=== PATIENT | male | born 1965 | race Caucasian/White ===

== ENCOUNTER 2016-09-01 10:25 | Day surgery (SDC) | payer OTHER ==
--- NOTE | 2016-09-01 09:39 | HP ---
DATE OF CLINIC: 08/30/2016 DEANDRE IBARRA : 1965 PLANNED PROCEDURE: Left Hip Hardware Removal DATE OF SURGERY: September 01, 2016 SURGEON: Denys Carpio M.D. HISTORY OF PRESENT ILLNESS Deandre Ibarra is a 51 year old male. * Medication list reviewed with patient allergy list reviewed with patient. * Feeling fine. The patient is a 51-year-old male who is now 8 months status post a left hip femoral neck fracture treated with an open reduction fixation with DHS and a derotational screw. The patient continues to have some nondescript pain by his left hip. He feels that his derotational screw from his left hip is continuing to bother him when he lays on this side and would like to have it removed. He has more pain on this side when he rolls on it and would like to discuss whether this could be secondary to the screw. He states that he occasionally has some spasm like sensation in his left calf. He is not sure what the cause of this is and would like to know if this is something that could be improved with surgery. The patient has chronic weakness on the left side from his previous stroke. He is here today with his family and would like to talk about his options. We discussed both non-operative and surgical options and he has elected to proceed with surgery. He presents today preoperatively for left hip hardware removal. The patient's PMH is significant for a history of a stroke. CURRENT MEDICATION * Acetaminophen 325 MG Tablet as directed 0 days, 0 refills * Aspirin 325 MG Tablet as directed 0 days, 0 refills * Atorvastatin Calcium 40 MG Tablet 1 once a day 0 days, 0 refills * BuPROPion HCl ER (SR) 150 MG Tablet, extended-release 12 hour TB12, 1 twice a day, 30 days, 4 refills * Daily Multivitamin Capsule 1 once a day 0 days, 0 refills * DiazePAM 5 MG Tablet 1/2 po qhs. ok to fill 08/16/16., 28 days, 0 refills * Docusate Sodium 100 MG Tablet 1 twice a day 0 days, 0 refills * Gemfibrozil 600 MG Tablet 1 twice a day, 90 days, 1 refills * Metoprolol Tartrate 25 MG Tablet 1 twice a day, 30 days, 4 refills * Naprosyn 500 MG Tablet 1 twice a day, 30 days, 4 refills * Remeron 30 MG Tablet 1 every bedtime. dose increase, 30 days, 6 refills * Sertraline HCl 100 MG Tablet 1 po qhs, 30 days, 4 refills * TraZODone HCl 50 MG Tablet 1 every bedtime 0 days, 0 refills * Vistaril 25 MG Capsule 1 po up to three times daily as needed if panic symptoms., 10 days, 1 refills PAST MEDICAL/SURGICAL HISTORY Reported: Recent change in medical history and no Surgery/Hospitalizations reported. Medical: Stroke. Surgical / Procedural: Prior surgery back surgery Left hip ORIF performed by Dr. Denys Carpio at the [facility] on 01/07/2016. SOCIAL HISTORY Social history unchanged. Behavioral: Caffeine use , 1ppd, current smoker, and smoking status: Current everyday smoker. Alcohol: No consumption of alcohol. Drug Use: Drug use pt uses marijuana for medical purposes, does have medical card. -cristopher salmeron. Home Environment: Homebound with assistance by family member or friend living in house. Work: Occupation disabled. Lives with sister. B-N-L is assigned caregiver. ALLERGIES * Dilaudid Reaction: makes him feel loopy REVIEW OF SYSTEMS Systemic: No fever and no recent weight change. Cardiovascular: No chest pain or discomfort and no palpitations. Pulmonary: No cough and no wheezing. Gastrointestinal: No nausea, no vomiting, no abdominal pain, and no diarrhea. Hematologic: No easy bleeding (no blood clots). Neurological: Motor disturbances (due to stroke) and sensory disturbances (due to stroke). Skin: No skin lesions and no rash. PHYSICAL FINDINGS * Vitals taken 08/30/2016 10:32 am BP-Sitting R 137/98 mmHg 100 - 120/60 - 80 BP Cuff Size Regular Pulse Rate-Sitting 66 bpm 50 - 100 Pulse Rhythm Regular Temp-Oral 97.1 F 96 - 101 Height 67 in 64 - 74 Eyes: General/bilateral: Extraocular Movements: * Normal. Lungs: * Clear to auscultation. * No wheezing was heard. * No rales/crackles were heard. Cardiovascular: Heart Rate And Rhythm: * Heart rate was normal. * Heart rhythm regular. Abdomen: Palpation: * Abdominal non-tender. Neurological: Motor: * Dominant Hand = Right Hand. The patient's left hip laterally based incision is well healed with no signs of infection. He continues to have tenderness just inferior to the greater trochanter where the derotational screw was backing out. The patient's range of motion of the hip appears to be normal. He has a negative log roll test. Passive range of motion of the left hip is from 0 to 95 degrees, internal rotation is 10 degrees, external rotation is 15 degrees. He continues to have gross sensation to light touch in the distribution of DP and SP nerves and capillary refill is less than 2 seconds. I had the patient's left knee taken through a range of motion. I do not appreciate any signs of joint line tenderness. No pain on the medial or lateral femoral condyle. His range of motion on the left knee is from 0 to 125 degrees. He has 4/5 strength of his quad. When I squeeze his calf I could not elicit any pain. TESTS * Test: CBC NO DIFF Report Date: 08/30/2016 WBC 6.5 10*3/mL MCV 89.2 fL RBC 4.37 10*6/uL Low MCH 30.4 pg MCHC 34.1 g/dL RDW 13.5 % PLATELET COUNT 319 10*3/mL HCT 39.0 % HGB 13.3 g/L Low * Test: BASIC METABOLIC PROFILE Report Date: 08/30/2016 BUN 17 mg/dL BUN/CREAT RATIO 17 CALCIUM 9.5 mg/dL GLUCOSE 76 mg/dL CREATININE 1.0 mg/dL SODIUM 134 meq/L Low POTASSIUM 4.6 meq/L CHLORIDE 100 meq/L CARBON DIOXIDE 27 meq/L ANION GAP 12 meq/L GFR 78 IMAGING 2.1.2017--CXR: No acute cardiopulmonary problems are appreciated. X-rays performed on August 09, 2016 show AP and lateral of the right knee. The patient has vascular clips on medial aspect of the left knee with mild bilateral knee osteoarthritis. The vascular clips on the left side are most likely from a saphenous vein harvest. On the flexion view I do not appreciate any narrowing. On the x-rays from August 09, 2016 I continue to see good signs of healing of the femoral neck fracture. No signs of motion at the DHS however the derotational screw continues to be proud. I think that this is possibly causing the patient some discomfort and without a CT scan I cannot say for sure if the femoral neck fracture is healed, however overall I think the patient's pain may be from this proud screw head. ASSESSMENT Left hip femoral neck fracture. Status post open reduction internal fixation with DHS and derotational screw, 7 months postoperative. History of cerebellar stroke with ataxia. PLAN * OTHER Malone 5-325 MG TABS, as directed: one tab by mouth every 6 hours as needed for pain, 7 days, 0 refills Keflex 500 MG CAPS, as directed: one tab by mouth every 8 hours until completed after surgery, 2 days, 0 refills Left hip hardware removal. THERAPY * Patient fall risk screen positive. * Patient eligible for fall risk assessment. * Patient received fall risk assessment. SURGICAL CONSENT We have discussed surgical options including left hip hardware removal and non-operative management. The patient and I spoke about the goals of the surgery. We spoke about the benefits of removing the screw. I did emphasize to him that I did not think this would help his left knee pain. I do think it will help his left sided discomfort though when he lays on that side. We spoke about the risks of infection, DVT, anesthesia risks and other problems. The patient then signed the consent form. The patient was counseled in detail regarding the diagnosis, treatment options available, prognosis of each treatment option and the potential risks and complications. The risks of surgery include, but are not limited to, anesthetic , neurovascular complications, pulmonary embolism, deep vein thrombosis, wound dehiscence, failure of any or all of the discussed procedures, infection of the joint or surrounding soft tissue, need for revision surgery, chronic pain, limitations in activities of daily living, inability to return to work, and loss of normal range of motion or functional use of the extremity. There is the possibility of failure over time that may require additional operative or non-operative treatment. The patient acknowledged that there are a number of perioperative risks not mentioned here and would still like to proceed. The patient is aware of and understands these risks, and wishes to proceed with the proposed surgical procedure and other procedures as indicated at the time of surgery. The preoperative instructions were reviewed with the patient and all questions were answered. CARE TEAM Reynaldo aHthaway Jr., MD Neurological Surgery Martina Hernandez PA-C [facility] Kang Cavanaugh MD Cardiovascular Disease BLP/sg
[2016-09-01] MEDS ORDERED: CEFAZOLIN SODIUM 2 GRAM PREMIX 100 ML IV PRN (10:30)
[2016-09-01] MEDS ORDERED: LACTATED RINGERS 1,000 ML ONE (10:31)
[2016-09-01] MEDS ORDERED: CEFAZOLIN SODIUM 2 GRAM PREMIX 100 ML IV ONE (10:32)
[2016-09-01] MEDS ORDERED: IV START KIT ONE (10:32)
[2016-09-01] MEDS ORDERED: LIDOCAINE 2% (PRES FREE) 5 ML VIAL ONE (12:27)
[2016-09-01] MEDS ORDERED: PROPOFOL 20 ML IV ONE (12:27)
[2016-09-01] MEDS ORDERED: MIDAZOLAM HCL 1 MG/ML 2ML VIAL ONE (12:27)
[2016-09-01] MEDS ORDERED: METOCLOPRAMIDE HCL 5 MG/ML 2ML VIAL ONE (12:27)
[2016-09-01] MEDS ORDERED: FENTANYL 5 ML ONE (12:27)
[2016-09-01] MEDS ORDERED: DEXAMETHASONE SOD PHOS 4 MG/1 ML VIAL ONE (12:27)
[2016-09-01] MEDS ORDERED: ROCURONIUM BROMIDE 10 MG/ML DOSE IV ONE (12:28)
[2016-09-01] MEDS ORDERED: ATROPINE SULFATE 0.4 MG/1 ML VIAL IV PRN (14:59)
[2016-09-01] MEDS ORDERED: NALOXONE HCL 0.4 MG/ML VIAL IV PRN (14:59)
[2016-09-01] MEDS ORDERED: ONDANSETRON 4 MG/2ML 2 ML VIAL IV PRN ×2 (14:59→16:07)
[2016-09-01] MEDS ORDERED: HYDROMORPHONE HCL 1 MG/ML SYRINGE IV PRN (14:59)
[2016-09-01] MEDS ORDERED: FENTANYL 100 MCG/2 ML VIAL IV PRN (14:59)
[2016-09-01] MEDS ORDERED: PROMETHAZINE HCL 25 MG/ML VIAL IM PRN (14:59)
[2016-09-01] MEDS ORDERED: LACTATED RINGERS 1,000 ML IV SCH ×2 (15:00→16:07)
[2016-09-01] MEDS ORDERED: NEOSTIGMINE METHYLSULFATE 1 MG/ML DOSE ONE (15:03)
[2016-09-01] MEDS ORDERED: ONDANSETRON 4 MG/2ML 2 ML VIAL ONE (15:03)
[2016-09-01] MEDS ORDERED: GLYCOPYRROLATE 0.2 MG/ML 1ML VIAL ONE (15:03)
[2016-09-01] MEDS ORDERED: BUPIVACAINE 0.25% (PRES FREE) 30 ML VIAL ONE (15:28)
--- NOTE | 2016-09-01 15:31 | PCMBPN ---
Brief Post Op Note: Date of Procedure: 09/01/16 Preoperative Diagnosis: 1. left hip painful hardware Postoperative Diagnosis: 1. [Same] Procedure: left hip removal of hardware Surgeon: Denys Carpio MD Assist:Lionel TELLEZ Anesthesia: GETA, 10mL 0.25% MARCAINE WITHOUT EPI Findings: as expected, derotational screw removed without incident Condition: extubated, stable vitals, transferred to PACU Complications: None IV Fluids: 1000 mLs of LR Urine Output: 0 mLs Estimated Blood Loss: 0 mLs Tourniquet Time: [N/A] Specimens: [N/A] Implants: None Drains: [N/A] PLAN: WBAT on the LLE. Only and Keflex for jhonatan-op prescriptions.
[2016-09-01] MEDS ORDERED: FENTANYL 100 MCG/2 ML VIAL ONE (15:55)
[2016-09-01] MEDS ORDERED: HYDROCODONE/ACETAMINOPHEN 5/325MG TABLET PO PRN (16:07)
[2016-09-01] MEDS ORDERED: MORPHINE SULFATE 2 MG/ML SYRINGE IV PRN (16:07)
[2016-09-01] MEDS ORDERED: DIPHENHYDRAMINE HCL 50 MG/1 ML VIAL IV PRN (16:07)
[2016-09-01] MEDS ORDERED: ACETAMINOPHEN 325 MG TABLET PO PRN (16:07)
--- NOTE | 2016-09-01 16:15 | RAD ---
HIP LEFT 1 VIEW COMPARISON: Pelvis and left hip, 08/09/2016 HISTORY: Intraoperative fluoroscopy. Removal of hardware from the left hip. Fluoroscopy time 19.1 seconds FINDINGS: Views: 2 AP views of the left hip. Bones: On image 8, there is a lag screw in the proximal left femur. On image 31, the screw has been completely removed. No change in the dynamic hip screw and sideplate. Joints: Osteoarthritis of the left hip. Soft tissues: Normal. IMPRESSION: 1. Complete removal of lag screw from the proximal left femur.
--- NOTE | 2016-09-01 16:39 | RAD ---
HIP LEFT 2 VIEWS PORTABLE COMPARISON: Left hip intraoperative radiographs, 09/01/2016. Left hip and pelvis 08/09/2016 HISTORY: The patient is immediately postop removal of some hardware from the proximal left femur. FINDINGS: Views: AP pelvis centered at the hips. Crosstable lateral view of the left hip. Bones: The lag screw has been removed from the proximal left femur. Healed fracture of the left femur. Satisfactory positioning of the dynamic hip screw and sideplate in the left femur. Joints: Normal Soft tissues: Normal IMPRESSION: Successful complete removal of the screw from the proximal left femur.
[2016-09-01] MEDS ORDERED: HYDROCODONE/ACETAMINOPHEN 5/325MG TABLET ONE (16:46)
--- NOTE | 2016-09-04 09:18 | OP ---
Oscar ESPINOZA : 1965 [id number] DATE OF PROCEDURE: September 01, 2016 PREOPERATIVE DIAGNOSIS: Left painful hip hardware. POSTOPERATIVE DIAGNOSIS: Left painful hip hardware. PROCEDURE: LEFT HIP REMOVAL OF HARDWARE FROM THE LEFT FEMORAL NECK. SURGEON: Denys Carpio M.D. POST ANESTHESIA ROOM NURSE: Martina Rosenbaum ANESTHESIA: General along with 10 mL of 0.25% Marcaine without epinephrine injected into the incision. FINDINGS: As suspected the patient's derotational screw had been backed out. This was removed without incident. CONDITION: The patient was extubated with stable vital signs and transferred to the PACU. COMPLICATIONS: None. INTRAVENOUS FLUIDS: 1000 mL of Lactate Ringer's. URINE OUTPUT: 0 mL ESTIMATED BLOOD LOSS: 10 mL SPECIMENS: N/A TOURNIQUET TIME: N/A IMPLANTS: None. DRAINS: N/A PLAN: The patient will be weight bearing as tolerated in the left lower extremity. [place] and Keflex will be used for perioperative prescriptions and aspirin for DVT prophylaxis. INDICATIONS: The patient is a 51-year-old male established patient of mine who eight months ago had a DHS and a derotational screw placed. The patient has since had healing of his left femoral neck fracture with some shortening. Since the shortening the patient had the backing up of his femoral neck fracture of his derotational screw. When he laid on his left side he was having increased pain from this. For this reason we discussed the pros and cons of removing the screw alone. I told him that he would be able to potentially take a minimal amount of narcotics, but this may help him lying on his side. After reviewing the risks and benefits of the procedure the patient decided to proceed. PROCEDURE DESCRIPTION: The patient was then seen in the preoperative area where I confirmed that the left side was the correct side. The patient was then seen by the anesthesia team who agreed to move forward with a general anesthetic. The patient and I confirmed that the consent matched the proposed procedure and we were ready to begin. He was brought from the preoperative area to the operating theater where he was placed on a radiolucent table. The patient was then intubated and a safety belt was placed. SCDs were placed on the right side or nonoperative side. The patient's then left leg had a bump placed under it so that I could see this incision. I then marked this area and shaved the area by the incision so that it would be ready for the prep. At this point in time the patient's left lower extremity was prepped and draped in sterile fashion, first with a chlorhexidine scrub and then prep. The incision from the previous DHS was marked out. At this point we performed a final time out confirming that the left side was the correct side and that we were planning on removing the derotational screw and the patient had received antibiotics approximately 30 minutes before this time out. At this point in time I palpated the skin, pressing hard I could feel the protuberance on the IT band. I confirmed this location on the C-arm. I then made a 3 cm incision. I then dissected down bluntly with a snap down to the IT band. I made a small hole in this and identified the cannulated screw. I then used a screwdriver to back this out. I confirmed that with fluoroscopic images that this was removed without any remaining hardware. The DHS was not affected. I then irrigated the incision closing the IT band with #0 Vicryl, interrupted #2-0 Vicryl and followed by sutures. At this point a DSD was applied. The patient prior to having the DSD had some local administered and the patient was awoken without difficulty and transferred to the recovery room. The patient will be weight bearing as tolerated on this side. Postoperative x-rays were obtained. He will plan on taking an aspirin for DVT prophylaxis follow up with us in the office in approximately 7 to 10 days to have his sutures removed. Job [id number] CC: [facility]
== END 2016-09-01 17:43 | disposition home or self-care (01) ==
LOC: SDC 10:25
PROVIDERS: ATTEND Orthopaedic Surgery
DX: T84.84XA Pain due to internal orthopedic prosthetic devices, implants and grafts, initial encounter (principal); I10 Essential (primary) hypertension; I25.2 Old myocardial infarction; F17.200 Nicotine dependence, unspecified, uncomplicated; Z79.82 Long term (current) use of aspirin
CPT/HCPCS: 76000; 73502; 73501; 20680; J3010 ×2; J1100; J2765; J2250; J2405; J7120; A9270; J0690